=== PATIENT | male | born 2000 | race Caucasian/White ===

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

== ENCOUNTER 2021-01-27 12:37 | Emergency (ER) | payer MEDICAID ==
[~2021-01-27] VITALS: Ht 175.3 cm; Wt 90.7 kg
[~2021-01-27 12:37] MED LIST changes: +COMBIVENT INH; +IPRAT-ALBUT 0.5-3 ML NEB
[2021-01-27] MEDS ORDERED: MEDROLDOSEPACK PO (13:46)
[2021-01-27] MEDS ORDERED: VENTOLIN HFA 1818 GM INH (13:46)
[2021-01-27 13:51] VITALS: BP 131/55
== END 2021-01-27 13:52 | disposition home or self-care (01) ==
LOC: M.ERS 12:37
DX: J45.901 Unspecified asthma with (acute) exacerbation (principal); Z88.1 Allergy status to other antibiotic agents; Z88.8 Allergy status to other drugs, medicaments and biological substances; Z98.890 Other specified postprocedural states

== ENCOUNTER 2021-02-01 20:31 | Emergency (ER) | payer MEDICAID ==
[~2021-02-01] VITALS: Ht 175.3 cm; Wt 90.7 kg
[2021-02-01] MEDS ORDERED: PREDNISONE 20 M20 MG PO (21:31)
[2021-02-01] MEDS ORDERED: IPRAT-ALBUT 0.5-3 ML NEB (21:36)
[2021-02-01] MEDS ORDERED: ADVAIR 250-501 EACH INH (21:39)
[2021-02-01 22:38] VITALS: BP 154/64
== END 2021-02-01 22:38 | disposition home or self-care (01) ==
LOC: M.ERS 20:31
DX: J45.901 Unspecified asthma with (acute) exacerbation (principal); Z20.822 Contact with and (suspected) exposure to COVID-19; Z88.1 Allergy status to other antibiotic agents

== ENCOUNTER 2021-03-11 19:42 | Emergency (ER) | payer MEDICAID ==
[~2021-03-11] VITALS: Ht 175.3 cm; Wt 90.7 kg
[2021-03-11] MEDS ORDERED: ADVAIR 250-501 EACH INH (21:14)
[2021-03-11] MEDS ORDERED: MEDROLDOSEPACK PO (21:14)
[2021-03-11] MEDS ORDERED: PROAIR HFA8.5 GM INH (21:14)
[2021-03-11 21:21] VITALS: BP 122/70
== END 2021-03-11 21:22 | disposition home or self-care (01) ==
LOC: M.ERS 19:42
DX: J45.901 Unspecified asthma with (acute) exacerbation (principal); Z20.822 Contact with and (suspected) exposure to COVID-19; Z88.1 Allergy status to other antibiotic agents

== ENCOUNTER 2021-05-08 18:21 | Emergency (ER) | payer MEDICAID ==
[~2021-05-08] VITALS: Ht 175.3 cm; Wt 83.9 kg
[2021-05-08] MEDS ORDERED: BUDESONIDE0.5 MG/2 M INH (20:26)
[2021-05-08] MEDS ORDERED: PREDNISONE50 MG PO (20:28)
[2021-05-08 20:43] VITALS: BP 132/68
== END 2021-05-08 20:43 | disposition home or self-care (01) ==
LOC: M.ERS 18:21
DX: J45.901 Unspecified asthma with (acute) exacerbation (principal); Z20.822 Contact with and (suspected) exposure to COVID-19; Z88.0 Allergy status to penicillin; Z88.1 Allergy status to other antibiotic agents

== ENCOUNTER 2021-06-04 11:06 | Emergency (ER) | payer MEDICAID ==
[~2021-06-04] VITALS: Ht 177.8 cm; Wt 83.9 kg
[~2021-06-04 11:06] MED LIST changes: +BUDESONIDE0.5 MG/2 M INH
[2021-06-04] MEDS ORDERED: ADVAIR 250-501 EACH INH ×2 (11:30→11:38)
[2021-06-04] MEDS ORDERED: PROAIR HFA8.5 GM INH (11:30)
[2021-06-04] MEDS ORDERED: PREDNISONE 20 M20 MG PO (11:38)
[2021-06-04] MEDS ORDERED: VENTOLIN HFA 1818 GM INH (11:38)
[2021-06-04] MEDS ORDERED: ALBUTEROL2.5 MG/31 INH (11:38)
[2021-06-04 11:59] VITALS: BP 134/72
== END 2021-06-04 12:00 | disposition home or self-care (01) ==
LOC: M.ERS 11:06
DX: J45.21 Mild intermittent asthma with (acute) exacerbation (principal); Z79.899 Other long term (current) drug therapy; Z88.1 Allergy status to other antibiotic agents; Z88.0 Allergy status to penicillin

== ENCOUNTER 2021-07-26 14:27 | Emergency (ER) | payer MEDICAID ==
[~2021-07-26] VITALS: Ht 175.3 cm; Wt 81.7 kg
[2021-07-26 16:56] VITALS: BP 127/73
== END 2021-07-26 16:57 | disposition home or self-care (01) ==
LOC: M.ERS 14:27
DX: R06.02 Shortness of breath (principal); J45.909 Unspecified asthma, uncomplicated; Z53.21 Procedure and treatment not carried out due to patient leaving prior to being seen by health care provider; Z98.890 Other specified postprocedural states; Z79.51 Long term (current) use of inhaled steroids; Z88.1 Allergy status to other antibiotic agents; Z88.8 Allergy status to other drugs, medicaments and biological substances

== ENCOUNTER → 2021-08-27 | Emergency (ER) | payer MEDICAID ==
[~2021-08-27] VITALS: Ht 175.3 cm; Wt 81.7 kg
[2021-08-27 13:56] VITALS: BP 134/88
== END ==
LOC: M.ERS 12:20
DX: J45.901 Unspecified asthma with (acute) exacerbation (principal); Z98.890 Other specified postprocedural states; Z79.899 Other long term (current) drug therapy; Z88.1 Allergy status to other antibiotic agents